=== PATIENT | female | born 1975 | race Caucasian/White ===

== ENCOUNTER 2021-06-26 18:24 | Emergency (ER) | payer OTHER ==
--- OUTSIDE RECORDS SUMMARY | 2021-06-26 18:27 | XMS REPORT | Continuity of Care Document ---
:[address] [facility] t Address [facility]3 [address] [place] [address] Care Team Providers Name Role Phone Unknown Primary Care Physician Unavailable ANTONY Attending Clinician Unavailable JORGE Attending Clinician Unavailable DR LARISA Attending Clinician Unavailable Dada Attending Clinician Unavailable OSORIO Attending Clinician Unavailable Doe Attending Clinician Unavailable Doctor Unassigned, Name Attending Clinician Unavailable Willis Rush Attending Clinician Unavailable Willis Rush Attending Clinician Unavailable RORY [place] M.D. Attending Clinician Unavailable DR LARISA Admitting Clinician Unavailable Dada Admitting Clinician Unavailable OSORIO Admitting Clinician Unavailable Doe Admitting Clinician Unavailable Willis Rush Admitting Clinician Unavailable RORY [place] M.D., C Admitting Clinician Unavailab JANAE Juarez M.D. Admitting Clinician Unavailable Payers Payer Name Policy Type Policy Number Effective Date Expiration Date [facility] [id number] 2020 ST[place] 00:00:00 [facility] [id number] 2017 COMMUNITY PLAN [place] 00:00:00 (MEDICAID HMO) Problems Condition Condition Condition Status Onset Resolution Last Treating Co mments Source Name Details Category Date Date Treatment Clinician Date Osteoarthr Osteoarthr Disease Active [facility] itis itis 8 Health 00:00: 00 Peripheral Peripheral Disease Active [facility] venous venous 12-26 Health insufficie insufficie 00:00: ncy ncy 00 Carotid Carotid Problem Active [place] artery Artery 12-26 da stenosis Stenosis 00:00: [facility] Coronary Coronary Problem Active [place] arterioscl Arterioscl 8 da erosis erosis 00:00: [facility] Hypokalemi Hypokalemi Disease Active [facility] a a 3 Health 00:00: 00 Insomnia Insomnia Disease Active [facility] 3 Health 00:00: 00 Prediabete Prediabete Disease Active U T s s 07-04 Health 00:00: 00 Pulmonary Pulmonary Disease Active [facility] hypertensi hypertensi 309 He alth on on 00:00: 00 Congestive Congestive Problem Active [facility] [place] heart Heart 3 da failure Failure 00:00: [facility] 00 pr [facility]re[facility] Varicose Varicose Problem Active [place] veins of Veins of 3 da lower limb Lower Limb 00:00: Ep iscop co-occurre Co-occurre 00 al nt with nt with Health edema Edema Outreac h Program Coronary Coronary Disease Active [facility] arterioscl arterioscl 6-25 He alth erosis erosis 00:00: 00 Mechanical Mechanical Disease Active U T low back low back 4-02 Health pain pain 00:00: 00 Gastro-eso Gastro-eso Disease Active U T phageal phageal 1 Health reflux reflux 00:00: disease disease 00 with with esophagiti esophagiti s s Foot Foot Disease Active [facility] callus callus 1 Health 00:00: 00 Edema of Edema of Problem Active [place] lower Lower 1 da extremity 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 [facility]re[facility] Program Diverticul Diverticul Disease Active [facility] T ar disease ar disease 1 He alth of colon of colon 00:00: 00 Diverticul Diverticul Problem Active [facility] [place] ar disease ar Disease 1- da of colon of Colon 00:00: [facility] 00 al [facility] Morbid Morbid Problem Active 2017-04 [place] obesity Obesity 1-30 da 00:00: [facility] 00 [facility] Angina Angina Disease Active [facility] pectoris pectoris 711 Health 00:00: 00 Edema of Edema of Disease Active [facility] lower lower 711 Health extremity extremity 00:00: 00 Essential Essential Disease Active [facility] hypertensi hypertensi 711 He alth on on 00:00: 00 Fibromyalg Fibromyalg Disease Active U T ia ia 7 Health 00:00: 00 Hyperlipid Hyperlipid Disease Active U T emia emia 7 Health 00:00: 00 Onychomyco Onychomyco Disease Active U T sis of sis of 11-05 Health toenail toenail 00:00: 00 Irritable Irritable Problem Active [place] bowel Bowel 11-05 da syndrome Syndrome 00:00: [facility] 00 al [facility]re[facility] Carotid Carotid Disease Active [facility] artery artery 3-29 Health stenosis stenosis 00:00: 00 Cigarette Cigarette Disease Active 2016-04 [facility] smoker smoker 2-14 Health 00:00: 00 Congestive Congestive Disease Active 2016-04 U T heart heart 2-14 Health failure failure 00:00: 00 Edema Edema Disease Active 2016-04 UT 2-14 Health 00:00: 00 Morbid Morbid Disease Active 2016-04 [facility] obesity obesity 2-14 Health 00:00: 00 Adrenal Adrenal Disease Active 2016-04 UT hyperplasi hyperplasi 0-18 He alth a a 00:00: 00 Adrenal Adrenal Disease Active 2016-04 [facility] nodule nodule 0-18 Health 00:00: 00 Allergies, Adverse Reactions, Alerts Allergy Allergy Status Severity Reaction(s) Onset Inactive Treating Comm ents Source Name Type Date Date Clinician No Known DA Active [facility] s Social History Social Habit Start Date Stop Date Quantity Comments Source Exposure to Not sure [facility] SARS-CoV-2 (event) Tobacco use and 2021-04-09 2021-04-09 Smokeless tobacco [facility] exposure 00:00:00 00:00:00 non-user Alcohol intake 2021-04-09 2021-04-09 Lifetime [facility] 00:00:00 00:00:00 non-drinker (finding) Education 2021-04-09 2021-04-09 11 [facility] 00:00:00 00:00:00 Sex Ass[birth year] At [birth year] [facility] 00:00:00 00:00:00 Smoking Status Start Date Stop Date Source Never smoked tobacco [facility] Former smoker 2018-11-10 00:00:00 2018-11-10 00:00:00 [facility] Medications Ordered Filled Start Stop Current Ordering Indication Dosage Frequency Signature Comments Components Source Medication Medication Date Date Medication? Clinician (SIG) Name Name lidocaine 2020-04 No 2162 20mg UT (Xylocaine) 06-10 Health 1 % 15:45: 15:45 injection 00 :00 20 mg methylPREDN 2020-04 No 40mg UT ISolone 06-10 Health acetate 15:45: 15:45 (DEPO-Medro 00 :00 l) injection 40 mg lidocaine 2020-04 No 2162 20mg UT (Xylocaine) 06-10 Health 1 % 15:45: 15:45 injection 00 :00 20 mg lidocaine 2020-04 No 2162 2mL 20 mg (2 UT (Xylocaine) 06-10 mL), Health 1 % 15:45: 15:45 Intra-kalpesh injection 00 :00 cular, 20 mg Once, On 04/09/21 at 0945, For 1 dose
In dications: Local Anesthesia methylPREDN 2020-04 No 40mg 40 mg, UT ISolone 06-10 Intra-kalpesh Healt h acetate 15:45: 15:45 cular, (DEPO-Medro 00 :00 Once, On l) Mon injection 04/09/21 40 mg at 0945, For 1 dose
In dications: shoulder pain diclofenac 2020-04- No QD 1 (one) UT (Voltaren) 06-10 time each Hea lth 75 MG EC 09:14: 00:00 day. tablet 28 :00 spironolact 2020-04 Yes Q12H every 12 UT one -13 (twelve) Health (Aldactone) 08:33: hours. 25 MG 35 tablet sulfamethox 2020-04 Yes Q12H every 12 UT azole-trime 2-13 (twelve) Heal th thoprim 08:33: hours. (Bactrim 35 DS) 800-160 MG tablet tazarotene 2020-04 Yes tazarotene U T (Tazorac) 2-13 0.1 % Health 0.1 % cream 08:33: topical 35 cream APPLY EXTERNALLY TO THE AFFECTED AREA EVERY NIGHT AT BEDTIME terbinafine 2020-04 Yes QD 1 (one) UT (LamISIL) 2-13 time each Healt h 250 MG 08:33: day. tablet 35 tiZANidine 2020-04 Yes [id number] 2mg QD Take 1 U T (Zanaflex) 2-13 tablet (2 Heal th 2 MG tablet 00:00: mg total) 00 by mouth at night if needed for muscle spasms. meloxicam 2020-04- Yes [id number] 7.5mg QD Take 1 U T (Mobic) 7.5 2-13 12-14 tablet Healt h MG tablet 00:00: 05:59 (7.5 mg 00 :00 total) by mouth 1 (one) time each day. meloxicam 2020-04 No [id number] 15mg QD Take 1 UT (Mobic) 15 2-13 12-13 tablet (15 He alth MG tablet 00:00: 00:00 mg total) 00 :00 by mouth 1 (one) time each day. clopidogrel 2020-04 Yes 75mg QD Take 75 mg UT (Plavix) 75 1-28 by mouth 1 He alth MG tablet 00:00: (one) time 00 each day. as directed atorvastati 2020-04 Yes 10mg QD Take 10 mg UT n (Lipitor) 1-26 by mouth 1 He alth 10 MG 00:00: (one) time tablet 00 each day. DULoxetine 2020-04 Yes 30mg Take 30 mg U T (Cymbalta) 1-21 by mouth 1 Hea lth [address] 00:00: (one) time capsule 00 each day if needed. hyoscyamine 2020-04 Yes DISSOLVE 2 UT (Anaspaz) 1-21 TABLETS Health 0.125 MG 00:00: UNDER THE disintegrat 00 TONGUE 30 ing tablet MINUTES BEFORE A MEAL lisinopril 2020-04 Yes 5mg QD Take 5 mg UT 5 MG tablet 1-21 by mouth 1 He alth 00:00: (one) time 00 each day. doxepin 2020-04 Yes TAKE ONE UT (SINEquan) 1-01 CAPSULE BY [facility] 50 MG 00:00: MOUTH capsule 00 DAILY 30 MINUTES BEFORE GOING TO SLEEP pantoprazol Yes 40mg Take 40 mg UT e 01-24 by mouth Health (ProtoNix) 00:00: every 40 MG EC 00 night. tablet sertraline Yes 50mg Take 50 mg U T (Zoloft) 50 01-02 by mouth 1 He alth MG tablet 00:00: (one) time 00 each day in the morning. metOLazone Yes 2.5mg Q.5D Take 2.5 UT (Zaroxolyn) 9-02 mg by [facility] 5 MG tablet 00:00: mouth 2 00 (two) times a day. isosorbide Yes TAKE 1 UT mononitrate 9- TABLET BY [facility] ER (Imdur) 00:00: MOUTH 30 MG 24 hr 00 DAILY FOR tablet CHEST PAIN fluconazole Yes TAKE 1 UT (Diflucan) 8-19 TABLET BY [facility] th 150 MG 00:00: MOUTH tablet 00 EVERY WEEK DIRECTED torsemide Yes 20mg Q.[id number] Take 20 mg UT (Demadex) 7- [id number] by mouth 3 Health 20 MG 00:00: 3D (three) tablet 00 times a day. metFORMIN Yes TAKE 1 UT (Glucophage 6-05 TABLET BY [facility] ) 500 MG 00:00: MOUTH tablet 00 EVERY MORNING WITH THE FIRST MEAL OF THE DAY. baclofen Yes 20mg Take 20 mg UT (Lioresal) 5-03 by mouth Healt h 20 MG 00:00: every tablet 00 night. topiramate Yes TK 1 T PO UT (Topamax) 5-03 BID UTD Health 100 MG 00:00: tablet 00 griseofulvi Yes TAKE 1 UT n 3-14 TABLET BY [facility] (Yasmin-PEG) 00:00: MOUTH 250 MG 00 THREE tablet TIMES DAILY DIRECTED Hydrocodone Yes Take by Un marce -Acetaminop 7-15 mouth 2 ity o f hen 7.5-300 15:51: (two) [place] mg tablet 18 times Medical daily. Branch amitriptyli 0 Yes 150mg Take 150 U nivers ne 150 mg 7-15 mg by ity of tablet 15:51: mouth at [place] 18 bedtime. Medical Branch aspirin 81 2019-0 Yes 81mg Take 81 mg U nivers mg EC 7-15 by mouth ity of tablet 15:51: daily. [place] [address] Medical Branch atorvastati 0 Yes 20mg Take 20 mg Univers n 20 mg 7-15 by mouth ity of tablet 15:51: at [place] 18 bedtime. Medical Branch baclofen 10 0 Yes 10mg Take 10 mg Univers mg tablet 7-15 by mouth 2 ity of 15:51: (two) [place] 18 times Medical daily. Branch clopidogrel Yes 75mg Take 75 mg Univers 75 mg 7-15 by mouth ity of tablet 15:51: daily. [place] [address] Medical Branch diclofenac- 2018-0 Yes Univer s capsaicin 7-15 ity of 75 mg- 15:51: [place] 0.025 % Kit Medical Branch esomeprazol 0 Yes 20mg Take 20 mg Univers e (NEXIUM) 7-15 by mouth ity o f 20 mg 15:51: daily [place] capsule 18 before a Medical meal. Branch gabapentin 0 Yes 300mg Take 300 Un marce ER 300 mg 7-15 mg by ity of tablet, 15:51: mouth [place] extended 18 daily. Medical release 24 Branch hr hyoscyamine 2018-0 Yes .125mg Take 0.125 Univers 0.125 mg 7-15 mg by ity of tablet 15:51: mouth 2 [place] 18 (two) Medical times Branch daily. isosorbide 20190 Yes 30mg Take 30 mg U nivers mononitrate 7-15 by mouth 2 it y of 30 mg 24 hr 15:51: (two) [place] tablet 18 times Medical daily. Branch lisinopril 0 Yes 5mg Take 5 mg Un marce 5 mg tablet 7-15 by mouth ity of 15:51: daily. [place] [address] Medical Branch metFORMIN 2019-0 Yes 500mg Take 500 Uni vers 500 mg 7-15 mg by ity of tablet 15:51: mouth. [place] [address] Medical Branch metOLazone 2019-0 Yes 10mg Take 10 mg U nivers 10 mg 7-15 by mouth ity of tablet 15:51: daily. [address] Branch nebivolol Yes 5mg Take 5 mg Uni vers (BYSTOLIC) 7-15 by mouth 2 ity of 5 mg tablet 15:51: (two) [place] 18 times Medical daily. Branch pantoprazol Yes 40mg Take 40 mg Univers e 40 mg EC 7-15 by mouth ity o f tablet 15:51: daily. [address] Branch POTASSIUM Yes Take by Univ ers CHLORIDE 7-15 mouth 2 ity of ORAL 15:51: (two) [place] 18 times Medical daily. Branch topiramate Yes 100mg Take 100 Un marce 100 mg 7-15 mg by ity of tablet 15:51: mouth [place] 18 daily. Medical Branch dexamethaso Yes [id number] Take one Univers ne 1 mg 7-18 [id number] tablet ity of tablet 00:00: between 11 [place] 00 PM- Medical midnight Branch and come to Lab at 8 am next morning acetaminoph Yes Univer s en-codeine 7-10 ity of 300-30 mg 00:00: [place] tablet 00 Medical Branch SERTraline Yes Univers 100 mg 6-27 ity of tablet 00:00: [place] [address] Medical Branch topiramate topiramate No topiramate [place] 100 mg tabs 100 mg tabs 100 mg da tabs Medical Group torsemide torsemide No torsemide [place] 20 mg tabs 20 mg tabs 20 mg tabs da Medical Group tramadol tramadol No tramadol [place] hcl 50 mg hcl 50 mg hcl 50 mg da tabs tabs tabs Medical Group atorvastati atorvastati No atorvastat [place] n 10 mg n 10 mg in 10 mg da tablet TAKE tablet TAKE tablet [facility] 1 TABLET BY 1 TABLET BY TAKE 1 al MOUTH EVERY MOUTH EVERY TABLET BY Health DAY DAY MOUTH Outreac EVERY DAY h Program cholecalcif cholecalcif No cholecalci [place] michell michell ferol da (vitamin (vitamin (vitamin Epi scop D3) 250 mcg D3) 250 mcg D3) 250 al (10,000 (10,000 mcg Health unit) unit) (10,000 Outreac tablet TAKE tablet TAKE unit) h 1 TABLET BY 1 TABLET BY tablet Program MOUTH EVERY MOUTH EVERY TAKE 1 DAY DAY TABLET BY MOUTH EVERY DAY clopidogrel clopidogrel No clopidogre [place] 75 mg 75 mg l 75 mg da tablet TAKE tablet TAKE tablet [facility] 1 TABLET BY 1 TABLET BY TAKE 1 al MOUTH DAILY MOUTH DAILY TABLET BY Health DIRECTED DIRECTED MOUTH Outreac DAILY h DIRECTED Program doxepin 50 doxepin 50 No doxepin 50 [place] mg capsule mg capsule mg capsule da TAKE ONE TAKE ONE TAKE ONE Epi scop CAPSULE BY CAPSULE BY CAPSULE BY al MOUTH DAILY MOUTH DAILY MOUTH Health 30 MINUTES 30 MINUTES DAILY 30 Outreac BEFORE BEFORE MINUTES h GOING TO GOING TO BEFORE Progr am SLEEP SLEEP GOING TO SLEEP duloxetine duloxetine No duloxetine [place] 30 mg 30 mg 30 mg da capsule,del capsule,del capsule,de [facility] ayed ayed layed al release release release Health TAKE ONE TAKE ONE TAKE ONE Out reac CAPSULE BY CAPSULE BY CAPSULE BY h MOUTH DAILY MOUTH DAILY MOUTH Program NEEDED NEEDED DAILY NEEDED fluconazole fluconazole No fluconazol [place] 150 mg 150 mg e 150 mg da tablet TAKE tablet TAKE tablet [facility] 1 TABLET BY 1 TABLET BY TAKE 1 al MOUTH EVERY MOUTH EVERY TABLET BY Health WEEK WEEK MOUTH Outreac DIRECTED DIRECTED EVERY WEEK h Program DIRECTED hyoscyamine hyoscyamine No hyoscyamin [place] 0.125 mg 0.125 mg e 0.125 mg d a disintegrat disintegrat disintegra [facility] ing tablet ing tablet ting al DISSOLVE 2 DISSOLVE 2 tablet H ealth TABLETS TABLETS DISSOLVE 2 Out reac UNDER THE UNDER THE TABLETS h TONGUE 30 TONGUE 30 UNDER THE Program MINUTES MINUTES TONGUE 30 BEFORE A BEFORE A MINUTES MEAL MEAL BEFORE A MEAL isosorbide isosorbide No isosorbide [place] mononitrate mononitrate mononitrat da ER 30 mg ER 30 mg e ER 30 mg E piscop tablet,exte tablet,exte tablet,ext al nded nded ended Health release 24 release 24 release 24 Outreac hr TAKE 1 hr TAKE 1 hr TAKE 1 h TABLET BY TABLET BY TABLET BY Program MOUTH DAILY MOUTH DAILY MOUTH FOR CHEST FOR CHEST DAILY FOR PAIN PAIN CHEST PAIN ketoconazol ketoconazol No ketoconazo [place] e 2 % e 2 % le 2 % da topical topical topical [facility] cream APPLY cream APPLY cream al TOPICALLY TOPICALLY APPLY Heal th TO THE TO THE TOPICALLY Outrea c AFFECTED AFFECTED TO THE h AREA TWICE AREA TWICE AFFECTED Program DAILY DAILY AREA TWICE DAILY lisinopril lisinopril No lisinopril [place] 5 mg tablet 5 mg tablet 5 mg d a TAKE 1 TAKE 1 tablet [facility] TABLET BY TABLET BY TAKE 1 al MOUTH EVERY MOUTH EVERY TABLET BY Health DAY DAY MOUTH Outreac EVERY DAY h Program metolazone metolazone No metolazone [place] 5 mg tablet 5 mg tablet 5 mg d a TAKE 1/2 TAKE 1/2 tablet [facility] TABLET BY TABLET BY TAKE 1/2 a l MOUTH TWICE MOUTH TWICE TABLET BY Health DAILY DAILY MOUTH Outreac Schedule Schedule TWICE h with with DAILY Program cardiologis cardiologis Schedule t for t for with continued continued cardiologi medications medications st for . . continued medication s. MG217 [place] MG217 [place] No MG217 [place] Tar 3 % Tar 3 % Tar 3 % da shampoo shampoo shampoo [facility] Apply Apply Apply al topically topically topically Health to affected to affected to [facility] [place] areas once areas once affected h every week. every week. areas once Program Apply to Apply to every affected affected week. areas once areas once Apply to a week in a week in affected the shower, the shower, areas once leave on leave on a week in affected affected the areas for areas for shower, about 3-5 about 3-5 leave on minutes, minutes, affected and rinse and rinse areas for off. Notify off. Notify about 3-5 office with office with minutes, worsening worsening and rinse or new or new off. rash. rash. Notify office with worsening or new rash. pantoprazol pantoprazol No pantoprazo [place] e 40 mg e 40 mg le 40 mg da tablet,lubna tablet,lubna tablet,del [facility] yed release yed release ayed a l TAKE 1 TAKE 1 release Health TABLET BY TABLET BY TAKE 1 Out reac MOUTH EVERY MOUTH EVERY TABLET BY h NIGHT AT NIGHT AT MOUTH Progra m BEDTIME BEDTIME EVERY NIGHT AT BEDTIME potassium potassium No potassium [place] chloride ER chloride ER chloride da 20 mEq 20 mEq ER 20 mEq [facility] tablet,exte tablet,exte tablet,ext al nded nded ended Health release release release Outrea c TAKE 2 TAKE 2 TAKE 2 h TABLETS BY TABLETS BY TABLETS BY Program MOUTH DAILY MOUTH DAILY MOUTH DAILY sertraline sertraline No sertraline [place] 50 mg 50 mg 50 mg da tablet TAKE tablet TAKE tablet [facility] 1 TABLET BY 1 TABLET BY TAKE 1 al MOUTH EVERY MOUTH EVERY TABLET BY Health MORNING MORNING MOUTH Outreac EVERY h MORNING Program tazarotene tazarotene No tazarotene [place] 0.1 % 0.1 % 0.1 % da topical topical topical [facility] cream APPLY cream APPLY cream al EXTERNALLY EXTERNALLY APPLY He alth TO THE TO THE EXTERNALLY Outre ac AFFECTED AFFECTED TO THE h AREA EVERY AREA EVERY AFFECTED Program NIGHT AT NIGHT AT AREA EVERY BEDTIME BEDTIME NIGHT AT BEDTIME torsemide torsemide No torsemide [place] 20 mg 20 mg 20 mg da tablet TAKE tablet TAKE tablet [facility] 1 TABLET BY 1 TABLET BY TAKE 1 al MOUTH THREE MOUTH THREE TABLET BY Health TIMES DAILY TIMES DAILY MOUTH Outreac THREE h TIMES Program DAILY triamcinolo triamcinolo No triamcinol [place] ne ne one da acetonide acetonide acetonide [facility] 0.1 % 0.1 % 0.1 % al topical topical topical Health ointment ointment ointment Out reac APPLY THIN APPLY THIN APPLY THIN h LAYER LAYER LAYER Program TOPICALLY TOPICALLY TOPICALLY TO THE TO THE TO THE AFFECTED AFFECTED AFFECTED AREA TWICE AREA TWICE AREA TWICE DAILY DAILY DAILY ala-hist pe ala-hist pe No ala-hist [place] tab 2-10mg tab 2-10mg pe tab da 2-10mg Medical Group amitriptyli amitriptyli No amitriptyl [place] ne hcl 150 ne hcl 150 ine hcl da mg tabs mg tabs 150 mg Medical tabs Group amitriptyli amitriptyli No amitriptyl [place] ne ne ine da hydrochlori hydrochlori hydrochlor Medical de 150 mg de 150 mg charley 150 Group tabs tabs mg tabs atorvastati atorvastati No atorvastat [place] n calcium n calcium in calcium da 20 mg tabs 20 mg tabs 20 mg M edical tabs Group baclofen baclofen No baclofen [place] 20 mg tabs 20 mg tabs 20 mg tabs da Medical Group bystolic 5 bystolic 5 No bystolic [place] mg tabs mg tabs 5 mg tabs da Medical Group clopidogrel clopidogrel No clopidogre [place] 75 mg tabs 75 mg tabs l 75 mg da tabs Medical Group diclofenac diclofenac No diclofenac [place] sodium dr jeremiah daniels dr da 75 mg tbec 75 mg tbec 75 mg tbec Medical Group doxepin hcl doxepin hcl No doxepin [place] 50 mg caps 50 mg caps hcl 50 mg da caps Medical Group gabapentin gabapentin No gabapentin [place] 300 mg caps 300 mg caps 300 mg da caps Medical Group hydroco/apa hydroco/apa No hydroco/ap [place] p tab p tab ap tab da 7.5-325 7.5-325 7.5-325 Medica l Group hyoscyamine hyoscyamine No hyoscyamin [place] sulfate sulfate e sulfate da 0.125 mg 0.125 mg 0.125 mg Med ical tbdp tbdp tbdp Group isosorbide isosorbide No isosorbide [place] mononitrate mononitrate mononitrat da er 30 mg er 30 mg e er 30 M edical tb24 tb24 mg tb24 Group lisinopril lisinopril No lisinopril [place] 5 mg tabs 5 mg tabs 5 mg tabs da Medical Group Medrol Medrol No 1dose Medrol [place] (Jim) 4 mg (Jim) 4 mg pk(s) (Jim) 4 mg da tablets in tablets in tablets in Medical a dose pack a dose pack a dose Group Take 1 dose Take 1 dose pack Take pk by oral pk by oral 1 dose pk route. route. by oral route. metformin metformin No metformin [place] hydrochlori hydrochlori hydrochlor da de 500 mg de 500 mg charley 500 Medical tabs tabs mg tabs Group metolazone metolazone No metolazone [place] 5 mg tabs 5 mg tabs 5 mg tabs da Medical Group off deep off deep No off deep [place] tejada dry tejada dry tejada dry da 25 % aero 25 % aero 25 % aero Medical Group pantoprazol pantoprazol No pantoprazo [place] e sodium e sodium le sodium da 40 mg tbec 40 mg tbec 40 mg tbec Medical [facility] potassium potassium No potassium [place] chloride chloride chloride da 10 % soln 10 % soln 10 % soln Medical Group potassium potassium No potassium [place] chloride er chloride er chloride da 20 meq 20 meq er 20 meq Med ical tbcr tbcr tbcr Group prednisone prednisone No prednisone [place] 20 mg tabs 20 mg tabs 20 mg d a tabs Medical Group sertraline sertraline No sertraline [place] hcl 50 mg hcl 50 mg hcl 50 mg da tabs tabs tabs Medical Group Immunizations Ordered Immunization Filled Immunization Date Status Commen ts Source Name Name pneumococcal pneumococcal 2020-12-26 Completed [place] polysaccharide PPV23 polysaccharide PPV23 17:39:54 [facility] Tdap Tdap 2020-12-26 Completed [place] 17:34:02 [facility] Tdap 2020-12-26 Completed [facility] 00:00:00 Pneumococcal 2020-12-26 Completed [facility] Polysaccharide PPV23 00:00:00 Influenza, 2018-03-24 Completed [facility] injectable, 00:00:00 quadrivalent influenza, influenza, 2018-03-24 Completed [place] injectable, injectable, 00:00:00 [facility] Vital Signs Vital Name Observation Time Observation Value Comments Source Systolic blood 2021-04-09 14:26:00 96 mm[Hg] [facility] pressure Diastolic blood 2021-04-09 14:26:00 63 mm[Hg] [facility] alth pressure Heart rate 2021-04-09 14:25:00 78 /min [facility] Body temperature 2021-04-09 14:25:[address] [facility] ealt Respiratory rate 2021-04-09 14:25:00 19 /min [facility] ealth Body height 2021-04-09 14:25:[address] [facility] Body weight 2021-04-09 14:25:00 113.671 kg [facility] BMI 2021-04-09 14:25:00 44.39 kg/m2 [facility] Oxygen saturation in 2021-04-09 14:25:00 100 /min [facility] Arterial blood by Pulse oximetry BP Diastolic 2021-01-04 00:00:00 86 mm[Hg] [place] [facility] Height 2021-01-04 00:00:00 63 [in_i] [place] [facility] BMI (Body Mass 2021-01-04 00:00:00 45.5 kg/m2 [place] driller Index) [facility] BP Systolic 2021-01-04 00:00:00 139 mm[Hg] [place] [facility] Body Weight 2021-01-04 00:00:00 256.6 [lb_av] [place] [facility] BP Diastolic 2020-12-26 00:00:00 80 mm[Hg] [place] [facility] Height 2020-12-26 00:00:00 63 [in_i] [place] [facility] BMI (Body Mass 2020-12-26 00:00:00 46.1 kg/m2 [place] driller Index) [facility] BP Systolic 2020-12-26 00:00:00 124 mm[Hg] [place] [facility] Body Weight 2020-12-26 00:00:00 4160 [oz_av] [place] [facility] BP Diastolic 2020-10-02 00:00:00 80 mm[Hg] [place] [facility] Height 2020-10-02 00:00:00 63 [in_i] [place] [facility] BMI (Body Mass 2020-10-02 00:00:00 44.3 kg/m2 [place] driller Index) [facility] BP Systolic 2020-10-02 00:00:00 116 mm[Hg] [place] [facility] Body Weight 2020-10-02 00:00:00 4000 [oz_av] [place] [facility] BP Diastolic 2020-07-03 00:00:00 72 mm[Hg] [place] [facility] Height 2020-07-03 00:00:00 63 [in_i] [place] [facility] BMI (Body Mass 2020-07-03 00:00:00 44.9 kg/m2 [place] [facility] dr[facility] Index) [facility] BP Systolic 2020-07-03 00:00:00 111 mm[Hg] [place] [facility] Body Weight 2020-07-03 00:00:00 4054.4 [oz_av] [place] [facility] BP Diastolic 2020-03-03 00:00:00 64 mm[Hg] [place] [facility] Height 2020-03-03 00:00:00 63 [in_i] [place] [facility] BMI (Body Mass 2020-03-03 00:00:00 42.9 kg/m2 [place] [facility] Index) [facility] BP Systolic 2020-03-03 00:00:00 117 mm[Hg] [place] [facility] Body Weight 2020-03-03 00:00:00 3875.2 [oz_av] [place] [facility] Height 2019-10-22 09:25:00 160.02 CM Weight 2019-10-22 09:25:00 112.49 KG BP Diastolic 2019-09-29 00:00:00 70 mm[Hg] [place] [facility] Height 2019-09-29 00:00:00 63 [in_i] [place] [facility] BMI (Body Mass 2019-09-29 00:00:00 46 kg/m2 [place] [facility] Index) [facility] BP Systolic 2019-09-29 00:00:00 120 mm[Hg] [place] [facility] Body Weight 2019-09-29 00:00:00 4153.6 [oz_av] [place] [facility] BP Diastolic 2019-09-28 00:00:00 77 mm[Hg] [place] [facility] Height 2019-09-28 00:00:00 63 [in_i] [facility] BMI (Body Mass 2019-09-28 00:00:00 45 kg/m2 [place] [facility] Index) Group BP Systolic 2019-09-28 00:00:00 105 mm[Hg] [facility] Body Weight 2019-09-28 00:00:00 254 [lb_av] [facility] BP Diastolic 2019-09-15 00:00:00 78 mm[Hg] [place] [facility] Height 2019-09-15 00:00:00 63 [in_i] [place] [facility] BMI (Body Mass 2019-09-15 00:00:00 45.4 kg/m2 [place] [facility] Index) [facility] BP Systolic 2019-09-15 00:00:00 108 mm[Hg] [place] [facility] Body Weight 2019-09-15 00:00:00 256.4 [lb_av] [place] [facility] BP Diastolic 2019-08-27 00:00:00 66 mm[Hg] [place] [facility] Height 2019-08-27 00:00:00 63 [in_i] [place] [facility] BMI (Body Mass 2019-08-27 00:00:00 46.3 kg/m2 [place] [facility] Index) [facility] BP Systolic 2019-08-27 00:00:00 112 mm[Hg] [place] [facility] Body Weight 2019-08-27 00:00:00 261.6 [lb_av] [place] [facility] BP Diastolic 2019-02-23 00:00:00 60 mm[Hg] [place] [facility] Height 2019-02-23 00:00:00 63 [in_i] [place] [facility] BMI (Body Mass 2019-02-23 00:00:00 47.2 kg/m2 [place] [facility] Index) [facility] BP Systolic 2019-02-23 00:00:00 120 mm[Hg] [place] [facility] Body Weight 2019-02-23 00:00:00 266.2 [lb_av] [place] [facility] Procedures Procedure Date / Time Performing Clinician Source Performed EXCISION RT KNEE JOINT 2019-11-22 00:00:00 [facility] END[facility] Center REPR RT KNEE JOINT PERQ 2019-11-22 00:00:00 [facility] ENDOSCOPIC Center MEDICATION CORRESPONDENCE 2019-09-28 05:01:00 Doctor Unassigned, [facility] [place] [facility] XR, knee, 3 view 2019-08-27 00:00:00 [place] [facility] XR, tibia + fibula, 2 2019-08-27 00:00:00 [place] [facility] MRI, knee, w/o contrast 2019-08-27 00:00:00 Alejo duval [facility] Insertion Catheter Artery [place] [facility] Orthopedic Surgery [place] [facility] Partial Hysterectomy [place] [facility] Plan of Care Planned Activity Planned Date Details Comments Source Diagnostic Test 2021-01-04 adenovirus C(40) + B(41) [place] Pending 00:00:00 Ag, qual immunoassay, [facility] stool [code = adenovirus Out reach Program C(40) + B(41) Ag, qual immunoassay, stool] Diagnostic Test 2021-01-04 C diff toxin A+B, qual [place] Pending 00:00:00 IA, stool [code = C diff [facility] toxin A+B, qual [place], Outreach Program stool] Diagnostic Test 2021-01-04 calprotectin, stool [place] Pending 00:00:00 [code = calprotectin, [facility] stool] [facility]reach [facility] Diagnostic Test 2021-01-04 cryptosporidium sp Ag, [place] Pending 00:00:00 immunoassay, stool [code [facility] = cryptosporidium sp Ag, Out reach Program immunoassay, stool] Diagnostic Test 2021-01-04 cyclospora smear, stool [place] sy[place] Pending 00:00:00 [code = cyclospora [facility] smear, stool] Outreach Progr am Diagnostic Test 2021-01-04 shiga toxins (1+2), [place] Pending 00:00:00 qualitative[facility] immuno[facility], stool [code Out reach Program = shiga toxins (1+2), qualitative, immunoassay, stool] Diagnostic Test 2021-01-04 pancreatic elastase, [place] sim[place] Pending 00:00:00 quant, stool [code = [facility] pancreatic elastase, Outreac h Program quant, stool] Diagnostic Test 2021-01-04 giardia lamblia Ag, EIA, [place] Pending 00:00:00 stool [code = giardia [facility] lamblia Ag, EIA, stool] Outr each Program Diagnostic Test 2021-01-04 unlisted lab [code = [place] simin Pending 00:00:00 unlisted lab] [facility] Diagnostic Test 2021-01-04 O&P (ova & parasites), [place] Pending 00:00:00 stool [code = O&P (ova & Epi [facility] parasites), stool] Outreach Program Diagnostic Test 2021-01-04 rotavirus Ag, qual, [place] Pending 00:00:00 immunoassay, stool [code [facility] = rotavirus Ag, qual, Outrea Program immunoassay, stool] Diagnostic Test 2021-01-04 culture, stool [code = [place] Pending 00:00:00 culture, stool] [facility] Outreach Progra m Diagnostic Test 2021-01-04 anca panel, serum [code [place] Pending 00:00:00 = anca panel, serum] [facility] Outreach Progra m Diagnostic Test 2021-01-04 Vance's yeast Ab, [place] Pending 00:00:00 quantitative, serum [facility] [code = Vance's yeast Outrea Program Ab, quantitative, serum] Diagnostic Test 2021-01-04 C reactive protein, QN, [place] sy[place] Pending 00:00:00 serum or plasma [code = [facility] C reactive protein, QN, Outr each Program serum or plasma] Diagnostic Test 2021-01-04 ESR (erythrocyte [place] Pending 00:00:00 sedimentation rate), [facility] blood [code = ESR Outreach P rogram (erythrocyte sedimentation rate), blood] Diagnostic Test 2021-01-04 celiac disease [place] Pending 00:00:00 comprehensive panel, [facility] serum [code = celiac Outreac h Program disease comprehensive panel, serum] Encounters Start End Encounter Admission Attending Care Care Encounter Source Date/Time Date/Time Type Type Clinicians Facility Department ID 2021-05-23 Outpatient [facility] [id number] [place] 14:27:49 [facility] 2021-04-09 [facility] [id number] [place] 09:38:14 [facility] 2021-03-09 [facility] [id number] [place] 15:37:18 [facility] 2019-12-[address] [facility] [id number] [place] 14:07:00 , HARVEYKIMBERLEY [facility] 2021-06-19 2021-06-19 Outpatient Nguyen_Tho [place] [id number] [place] 02:16:00 02:16:00 0222 da [facility] 2021-06-18 2021-06-18 Outpatient Nguyen_Tho [facility] [id number] [place] 10:58:00 10:58:00 0221 da [facility] 2021-04-09 2021-04-09 Office Jorge [facility] [id number] [place] 08:00:00 09:37:03 Visit Luna HA [id number] [facility] [id number] 2021-01-05 2021-01-05 Outpatient Nguyen_Tho [facility] [id number] [place] 03:06:00 03:06:00 0910 da [facility] Outre[facility] 2021-01-04 2021-01-04 Outpatient Nguyen_Tho [facility] [id number] [place] 04:18:00 04:18:00 0909 da [facility] Outre[facility] 2021-01-04 2021-01-04 Je Georges [facility] [place] - [id number] [place] 00:00:00 00:00:00 Fay Castro MD: [id number] [facility] [place] [place] [address] [facility] [address], [facility] Program [phone] , Ph. 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 2020-06-22 2020-06-22 Outpatient NEESE_RANDELL [facility] [id number] [place] 10:38:00 10:38:00 0225 da [facility] 2020-06-22 2020-06-22 Outpatient NEESE_RANDELL [facility] [id number] [place] 10:38:00 10:38:00 0305 da [facility] 2020-03-03 2020-03-03 Outpatient NEESE_RANDELL [facility] [id number] [place] 05:13:00 05:13:00 1106 da [facility] 2020-03-03 2020-03-03 Randell Boyd [facility] - [id number] [place] 00:00:00 00:00:00 KATHARINE Robert: Fay ji a [address] [facility] [place] [address] Outre [phone] h , Ph. Program 2020-03-01 2020-03-01 Outpatient NEESE_RANDELL [facility] [id number] [place] 02:30:00 02:30:00 1104 da [facility] 2019-11-22 2019-11-[address] [facility] [id number] [place] 06:17:00 11:30[facility]00 [facility] 2019-10-[address] [facility] [id number] [place] 09:21:00 23:59:00 , HARVEY [facility] 2019-09-29 2019-09-29 Outpatient FAUSTO_RANDELL [place] [id number] [place] 11:19:00 11:19:00 0603 da [facility] Outre[facility] Program 2019-09-29 2019-09-29 [facility] [id number] [place] 01:00:00 01:00:00 0603 da [facility] 2019-09-29 2019-09-29 Outpatient Doe [facility] [id number] [place] 01:00:00 01:00:00 0604 Medical Group 2019-09-29 2019-09-29 Randell VASQUEZ [place] - [id number] [place] 00:00:00 00:00:00 KATHARINE Robert: Fay hilton [address] [facility] - [facility] [address], [place], [place] 3 [facility] [address] h , Ph. Program 2019-09-28 2019-09-28 Outpatient Doe [facility] [id number] [place] 12:05:00 12:05:00 0602 Medical Group 2019-09-28 2019-09-28 Orders Doctor RANDELL [id number] 00:00:00 00:00:00 Only Unassigned, [place] [id number] [place] [facility] [id number] 2019-09-28 2019-09-28 Orders Doctor RANDELL [id number] [facility] 00:00:00 00:00:00 Only Unassigned, [place] [id number] [facility] [place] [facility] [id number] Derrell as [id number] [place] [address] Branch 2019-09-28 2019-09-28 [place] [facility] [place] - [id number] M atagor 00:00:00 00:00:00 Discovery bibiana Dotson MD: [address] [place] [address] Group [place] - [address], [place] [address] , Ph. 2019-09-15 2019-09-15 Outpatient NEESE_RANDELL VASQUE[place] [id number] [place] 03:45:00 03:45:00 0520 da [facility] 2019-09-15 2019-09-15 Outpatient Doe [facility] [id number] [place] 03:30:00 03:30:00 0520 da Medical Group 2019-09-15 2019-09-15 Outpatient Doe DAY [facility] [id number] [place] 03:30:00 03:30:00 0528 da Medical Group 2019-09-15 2019-09-15 Randell VASQUEZ [place] - [id number] [place] 00:00:00 00:00:00 KATHARINE Robert: Fay hilton [address] [facility] [place] [facility] [place] 3 Outreac [phone] h , Ph. Program 2019-09-09 2019-09-09 Outpatient NEESE_RANDELL VASQUEZ [id number] [place] 11:03:00 11:03:00 0514 da [facility] 2019-08-27 2019-08-27 Outpatient NEESE_RANDELL VASQUEZ [id number] [place] 03:14:00 03:14:00 0501 da [facility] 2019-08-27 2019-08-27 Randell VASQUEZ [place] - [id number] [place] 00:00:00 00:00:00 KATHARINE Robert: Fay hilton 1700 [facility] [place] [facility] [place] 3 Outreac [phone] h , Ph. Program 2019-08-19 2019-08-19 Outpatient NEESE_RANDELL VASQUEZ [id number] [place] 12:33:00 12:33:00 0423 da [facility] 2019-03-18 2019-03-18 Outpatient NEESE_RANDELL [place] [id number] [place] 08:59:00 08:59:00 0417 da [facility] 2019-02-23 2019-02-23 Randell VASQUEZ [place] - [id number] [place] 00:00:00 00:00:00 KATHARINE Robert: Fay hilton 1700 [facility], [facility] 3, [address] [address] Progr am , Ph. 2018-09-02 2018-09-02 [facility] [id number] 19:50:00 23:59:00 [facility] 2017-04-10 2017-04-10 Outpatient C [facility] [id number] 20:15:00 20:15:00 [facility] Results Test Description Test Time Test Comments Results Result Comments Source CBC W Auto Differential panel - Blood 2020-12-27 00:00:00 Test Item Value Reference Range Interpretation Comme nts Leukocytes [#/volume] in Blood by Automated count (test 6.6 x10e3/u L 3.4-10.8 code = 6690-2) Erythrocytes [#/volume] in Blood by Automated count 4.48 x10e6/uL 3 .77-5.28 (test code = 789-8) Hemoglobin [Mass/volume] in Blood (test code = 718-7) 13.3 g/dL 11.1-15.9 Hematocrit [Volume Fraction] of Blood by Automated count 40.9 % 34.0-46.6 (test code = 4544-3) MCV [Entitic volume] by Automated count (test code = 91 fL 7 9-97 787-2) MCH [Entitic mass] by Automated count (test code = 29.7 pg 26. 6-33.0 785-6) MCHC [Mass/volume] by Automated count (test code = 32.5 g/dL 31. 5-35.7 786-4) Erythrocyte distribution width [Ratio] by Automated 14.4 % 11 .7-15.4 count (test code = 788-0) Platelets [#/volume] in Blood by Automated count (test 384 x10e3/uL 150-450 code = 777-3) Neutrophils/100 leukocytes in Blood by Automated count 57 % not estab. (test code = 770-8) Lymphocytes/100 leukocytes in Blood by Automated count 31 % not estab. (test code = 736-9) Monocytes/100 leukocytes in Blood by Automated count 7 % n ot estab. (test code = 5905-5) Eosinophils/100 leukocytes in Blood by Automated count 4 % not estab. (test code = 713-8) Basophils/100 leukocytes in Blood by Automated count 1 % n ot estab. 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 by Automated count (test code = 77636-5) Morphology [Interpretation] in Blood Narrative (test route sales driver code = 91759-0) [facility] ProgramComprehensive [facility] 2000 panel - Serum or [id number] 00:00:00 Test Item Value Reference Range Interpretation Comments Glucose [Mass/volume] in 91 mg/dL 65-99 Serum or Plasma (test code = 2345-7) Urea nitrogen [Mass/volume] 10 mg/dL 6-24 in Serum or Plasma (test code = 3094-0) Creatinine [Mass/volume] in 0.80 mg/dL 0.57-1.00 Serum or Plasma (test code = 2160-0) Glomerular filtration 89 mL/min/1.73 >59 rate/1.73 sq M.predicted among non-blacks [Volume Rate/Area] in Serum, Plasma or Blood by Creatinine-based formula (CKD-EPI) (test code = 51036-0) Glomerular filtration 103 mL/min/1.73 >59 rate/1.73 sq M.predicted among blacks [Volume Rate/Area] in Serum, Plasma or Blood by Creatinine-based formula (CKD-EPI) (test code = 79109-7) Urea nitrogen/Creatinine 13 9-23 [Mass Ratio] in Serum or Plasma (test code = 3097-3) Sodium [Moles/volume] in 141 mmol/L 134-144 Serum or Plasma (test code = 2951-2) Potassium [Moles/volume] in 4.6 mmol/L 3.5-5.2 Serum or Plasma (test code = 2823-3) Chloride [Moles/volume] in 106 mmol/L 96-106 Serum or Plasma (test code = 5-0) Carbon dioxide, total 23 mmol/L 20-29 [Moles/volume] in Serum or Plasma (test code = 2027-9) Calcium [Mass/volume] in 9.3 mg/dL 8.7-10.2 Serum or Plasma (test code = 30311-0) Protein [Mass/volume] in 6.7 g/dL 6.0-8.5 Serum or Plasma (test code = 2885-2) Albumin [Mass/volume] in 4.1 g/dL 3.8-4.8 Serum or Plasma (test code = 1751-7) Globulin [Mass/volume] in 2.6 g/dL 1.5-4.5 Serum by calculation (test code = 47356-1) Albumin/Globulin [Mass Ratio] 1.6 1.2-2.2 in Serum or Plasma (test code = 1759-0) Bilirubin.total [Mass/volume] 0.3 mg/dL 0.0-1.2 in Serum or Plasma (test code = 1974-2) Alkaline phosphatase 77 IU/L 48-121 [Enzymatic activity/volume] in Serum or Plasma (test code = 6768-6) Aspartate aminotransferase 12 IU/L 0-40 [Enzymatic activity/volume] in Serum or Plasma (test code = 1920-8) Alanine aminotransferase 14 IU/L 0-32 [Enzymatic activity/volume] in Serum or Plasma (test code = 1742-6) [facility]25-Hydroxyvitamin D3+25- Hydroxyvitamin D2 [Mass/volume] in Serum or [id number] 00:00:00 Test Item Value Reference Range Interpretation Comments 25-Hydroxyvitamin 23.8 NG/mL 30.0-100.0 L D3+25-Hydroxyvitamin D2 [Mass/volume] in Serum or Plasma (test code = 31067-2) [facility]+HIV1 p24 Ag [Presence] in Serum or Plasma by [id number] 00:00:00 Test Item Value Reference Range Interpretation Comments HIV 1+2 Ab+HIV1 p24 Ag non reactive non reactive [Presence] in Serum or Plasma by Immunoassay (test code = 25356-8) [facility] *WW*2019-11-22 07:20:00 Test Item Value Reference Range Interpretation Comments GLUCOSE (test code = 105 mg/dL 75-100 H 06D) SODIUM (test code = 139 mmol/L 136-145 01A) POTASSIUM (test code = 3.3 mmol/L 3.6-5.1 L 01B) CHLORIDE (test code = 106 mmol/L 98-107 04A) CO2 (test code = 02A) 29 mmol/L 22-32 ANION GAP (test code = 7.3 mmol/L ANG) BUN (test code = 05D) 8 mg/dL 7-18 CREATININE (test code 0.7 mg/dL 0.4-1.1 = 03E) GFR (test code = GFR) 97 mL/min/1.73m\S\2 >=90 GFR 113 mL/min/1.73m\S\2 >=90 (test code = GFRAA) EGFR (test code = eGFR BY CKD-EPI EGFR) CALCULATION IS NOT RECOMMENDED FOR PATIENTS UNDER 18 YEARS OF AGE. BUN/CREA (test code = 11 12-20 L BCR) CALCIUM (test code = 7.8 mg/dL 8.3-9.5 L 09D) Magnesium, [id number] 04:59:00 Test Item Value Reference Range Interpretation Comments Magnesium (test code = MG) 2.0 mg/dL 1.7-2.5 N Basic Metabolic [id number] 04:59:00 Test Item Value Reference Range Interpretation Comments Sodium (test code = 136 mmol/L 135-145 N NA) Potassium (test 3.8 mmol/L 3.5-5.1 N code = K) Chloride (test code 102 mmol/L 98-105 N = CL) Carbon Dioxide 27 mmol/L 22-29 N (test code = CO2) Glucose (test code 107 mg/dL 70-115 N = GLU) Blood Urea Nitrogen 7 mg/dL 6-20 N (test code = BUN) Creatinine (test 0.6 mg/dL 0.5-0.9 N code = CREAT) Calcium (test code 8.6 mg/dL 8.3-10.5 N = CA) BUN/Creatinine 11.7 Ratio (test code = BCRATIO) Anion Gap (test 7 mmol/L 7-16 N code = AGAP) Estimated GFR (test >60 eGFR (es timated code = GFR) mL/min/1.73m2 Glomerular Joni tration Rate) is an est imated value,calculate d from the patient's s cristin creatinine usin g the MDRD equation.I t is NOT the patient 's actual GFR. The eGFR provides a more clinicallyusefu l measure of kidn ey disease than se rum creatinine alone.This calculation antonio es sex and race into account, if the informationis provided. If th e race is not provided , and the patient isAfrican-Ameri can, multiply by 1.2 12. If sex is not prov ided, and thepatient is female, multipl y by 0.742. Results for patients <18 ye ars ofage have not been validated by th e MDRD study and trungul margy be interpretedwith caution.eGFR Re sult Interpretation: eGFR > or = 60 is in t he Normal RangeeGF R < 60 may mean kidney diseaseeGFR < 1 5 may mean kidney failureRange s recommended by the National Kidney Foundation,http ://nkd ep.nih.gov CBC with [id number] 04:35:00 Test Item Value Reference Range Interpretation Comments WBC (test code = WBC) 7.6 K/cumm 4.4-10.5 N RBC (test code = RBC) 4.37 M/cumm 3.75-5.20 N Hemoglobin (test code = HGB) 13.4 gm/dL 12.2-14.8 N Hematocrit (test code = HCT) 40.8 % 36.5-44.4 N MCV (test code = MCV) 93.3 fL 80-100 N MCH (test code = MCH) 30.6 pg 27.0-32.5 N MCHC (test code = MCHC) 32.8 g/dL 32.0-37.5 N RDW (test code = RDW) 12.3 % 11.5-14.5 N Platelet Count (test code = 307 K/cumm 140-440 N PLTCT) MPV (test code = MPV) 9.5 fL Diff Method (test code = DIFFM) Auto Neutrophil (test code = NEUT) 63.6 % 36-70 N Lymphocyte (test code = LYMPH) 27.3 % 12-44 N Monocyte (test code = MONO) 6.5 % 0-11 N Eosinophil (test code = EOS) 2.2 % 0-7 N Basophil (test code = BASO) 0.3 % 0-2 N Neutro Abs (test code = ANEUT) 4.8 K/cumm 1.6-7.4 N Lymph Abs (test code = ALYMPH) 2.1 K/cumm 0.5-4.6 N Hood Abs (test code = AMONO) 0.5 K/cumm 0.0-1.2 N Eos Abs (test code = AEOS) 0.17 K/cumm 0.00-0.74 N Baso Abs (test code = ABASO) 0.0 K/cumm 0.00-0.21 N Basic Metabolic [id number] 14:00:00 Test Item Value Reference Range Interpretation Comments Sodium (test code = 136 mmol/L 135-145 N NA) Potassium (test 4.1 mmol/L 3.5-5.1 N code = K) Chloride (test code 99 mmol/L 98-105 N = CL) Carbon Dioxide 27 mmol/L 22-29 N (test code = CO2) Glucose (test code 86 mg/dL 70-115 N = GLU) Blood Urea Nitrogen 8 mg/dL 6-20 N (test code = BUN) Creatinine (test 0.7 mg/dL 0.5-0.9 N code = CREAT) Calcium (test code 9.2 mg/dL 8.3-10.5 N = CA) BUN/Creatinine 11.4 Ratio (test code = BCRATIO) Anion Gap (test 10 mmol/L 7-16 N code = AGAP) Estimated GFR (test >60 eGFR (es timated code = GFR) mL/min/1.73m2 Glomerular Joni tration Rate) is an est imated value,calculate d from the patient's s cristin creatinine usin g the MDRD equation.I t is NOT the patient 's actual GFR. The eGFR provides a more clinicallyusefu l measure of kidn ey disease than se rum creatinine alone.This calculation antonio es sex and race into account, if the informationis provided. If th e race is not provided , and the patient isAfrican-Ameri can, multiply by 1.2 12. If sex is not prov ided, and thepatient is female, multipl y by 0.742. Results for patients <18 ye ars ofage have not been validated by th e MDRD study and trungul d be interpretedwith caution.eGFR Re sult Interpretation: eGFR > or = 60 is in t he Normal RangeeGF R < 60 may mean kidney diseaseeGFR < 1 5 may mean kidney failureRange s recommended by the National Kidney Foundation,http ://nkd ep.nih.gov Urinalysis [id number] 13:50:00 Test Item Value Reference Range Interpretation Comments Color (test code = COLOR) Yellow Yellow,Straw,Pl N yellow Clarity (test code = Clear Clear N CLAR) Specific [place] (test 1.006 1.001-1.035 N code = SPGR) pH (test code = PH) 6.5 5.0-9.0 N Ketone (test code = KET) Negative mg/dL Negative N Glucose (test code = Negative mg/dL Negative N GLUCUR) Protein (test code = Negative mg/dL Negative N PROT) Bilirubin (test code = Negative mg/dL Negative N BILI) Occult Blood (test code = Negative Negative N UDOB) Urobilinogen (test code = 0.2 mg/dL 0.2-1.0 N UROB) Nitrite (test code = NIT) Negative Negative N Leuk Esterase (test code Negative Negative N = LEUK) Micros Exam (test code = Not indicated MEXAM) CBC with [id number] 13:33:00 Test Item Value Reference Range Interpretation Comments WBC (test code = WBC) 6.5 K/cumm 4.4-10.5 N RBC (test code = RBC) 4.24 M/cumm 3.75-5.20 N Hemoglobin (test code = HGB) 13.2 gm/dL 12.2-14.8 N Hematocrit (test code = HCT) 39.2 % 36.5-44.4 N MCV (test code = MCV) 92.6 fL 80-100 N MCH (test code = MCH) 31.1 pg 27.0-32.5 N MCHC (test code = MCHC) 33.6 g/dL 32.0-37.5 N RDW (test code = RDW) 12.0 % 11.5-14.5 N Platelet Count (test code = 309 K/cumm 140-440 N PLTCT) MPV (test code = MPV) 7.6 fL Diff Method (test code = DIFFM) Auto Neutrophil (test code = NEUT) 49.7 % 36-70 N Lymphocyte (test code = LYMPH) 37.1 % 12-44 N Monocyte (test code = MONO) 8.2 % 0-11 N Eosinophil (test code = EOS) 4.6 % 0-7 N Basophil (test code = BASO) 0.4 % 0-2 N Neutro Abs (test code = ANEUT) 3.2 K/cumm 1.6-7.4 N Lymph Abs (test code = ALYMPH) 2.4 K/cumm 0.5-4.6 N Hood Abs (test code = AMONO) 0.5 K/cumm 0.0-1.2 N Eos Abs (test code = AEOS) 0.30 K/cumm 0.00-0.74 N Baso Abs (test code = ABASO) 0.0 K/cumm 0.00-0.21 N XR CHEST 1 [id number] 07:51:58EXAM: Portable AP chest x-rayLOCATION: R16 INDICATION: pre-procedure xrayCOMPARISON: NoneFINDINGS:The cardiac silhouette is enlarged. There is no focal consolidation. There is no pleural effusion or pn eumothorax. IMPRESSION:Cardiomegaly.Sed Rate ESR ([place])2017-04-11 03:06:00 Test Item Value Reference Range Interpretation Comments ESR (test code = HESR) 26 mm/Hr 0-20 H Lipid [id number] 22:56:00 Test Item Value Reference Range Interpretation Comments Cholesterol (test 198 mg/dL 0-200 N code = CHOL) Triglycerides (test 129 mg/dL 9-200 N code = TRIG) HDL (test code = 41 mg/dL 50-60 L HDL) Chol/HDL (test code 4.8 Ratio 0.0-4.4 H = CHOLPHDL) LDL, Calculated 131 mg/dL 0-130 H (NOTE)RISK O F HEART (test code = LDLC) DISEASEPu blished by [place] Heart AssociationAnal yte Optim al Boderline Increased RiskC HOL <200 200-239 >240TRI G <150 150-199 >200HDL Male: >60 <40HDL Female: >60 <50 LDL < 100 130-15 9 >160 LDL NEAR OPTIMAL IS 100- 129 VLDL (test code = 26 mg/dL 5-40 N VLDL) LDL/HDL (test code = 3 LDLPHDL) Comprehensive Metabolic [id number] 22:56:00 Test Item Value Reference Range Interpretation Comments Sodium (test code = 140 mmol/L 135-145 N NA) Potassium (test 4.1 mmol/L 3.5-5.1 N code = K) Chloride (test code 103 mmol/L 98-105 N = CL) Carbon Dioxide 26 mmol/L 22-29 N (test code = CO2) Glucose (test code 95 mg/dL 70-115 N = GLU) Blood Urea Nitrogen 7 mg/dL 6-20 N (test code = BUN) Creatinine (test 0.7 mg/dL 0.5-0.9 N code = CREAT) Calcium (test code 9.4 mg/dL 8.3-10.5 N = CA) Prot Total (test 6.6 g/dL 6.4-8.3 N code = TP) Albumin (test code 4.1 g/dL 3.5-5.2 N = ALB) A/G Ratio (test 1.6 Ratio code = AGRATIO) Globulin (test code 2.5 2.9-3.1 L = GLOB) Bili Total (test <0.1 mg/dL 0.1-0.9 L code = TBIL) Alk Phos (test code 62 U/L 35-104 N = APHOS) AST (test code = 16 U/L 1-32 N AST) ALT (test code = 21 U/L 1-33 N ALT) BUN/Creatinine 10.0 Ratio (test code = BCRATIO) Anion Gap (test 11 mmol/L 7-16 N code = AGAP) Estimated GFR (test >60 eGFR (es timated code = GFR) mL/min/1.73m2 Glomerular Joni tration Rate) is an est imated value,calculate d from the patient's s cristin creatinine usin g the MDRD equation.I t is NOT the patient 's actual GFR. The eGFR provides a more clinicallyusefu l measure of kidn ey disease than se rum creatinine alone.This calculation antonio es sex and race into account, if the informationis provided. If th e race is not provided , and the patient isAfrican-Ameri can, multiply by 1.2 12. If sex is not prov ided, and thepatient is female, multipl y by 0.742. Results for patients <18 ye ars ofage have not been validated by th e MDRD study and shoul d be interpretedwith caution.eGFR Re sult Interpretation: eGFR > or = 60 is in t he Normal RangeeGF R < 60 may mean kidney diseaseeGFR < 1 5 may mean kidney failureRange s recommended by the National Kidney Foundation,http ://nkd ep.nih.gov [id number] 22:49:00 Test Item Value Reference Range Interpretation Comments NT ProBnp (test code = PBNP) 97 pg/mL 0-124 N CBC with [id number] 22:41:00 Test Item Value Reference Range Interpretation Comments WBC (test code = WBC) 6.4 K/cumm 4.4-10.5 N RBC (test code = RBC) 4.10 M/cumm 3.75-5.20 N Hemoglobin (test code = HGB) 12.8 gm/dL 12.2-14.8 N Hematocrit (test code = HCT) 38.1 % 36.5-44.4 N MCV (test code = MCV) 93.0 fL 80-100 N MCH (test code = MCH) 31.3 pg 27.0-32.5 N MCHC (test code = MCHC) 33.7 g/dL 32.0-37.5 N RDW (test code = RDW) 13.1 % 11.5-14.5 N Platelet Count (test code = 355 K/cumm 140-440 N PLTCT) MPV (test code = MPV) 11.0 fL Diff Method (test code = DIFFM) Auto Neutrophil (test code = NEUT) 51.2 % 36-70 N Lymphocyte (test code = LYMPH) 35.9 % 12-44 N Monocyte (test code = MONO) 6.5 % 0-11 N Eosinophil (test code = EOS) 6.0 % 0-7 N Basophil (test code = BASO) 0.5 % 0-2 N Neutro Abs (test code = ANEUT) 3.3 K/cumm 1.6-7.4 N Lymph Abs (test code = ALYMPH) 2.3 K/cumm 0.5-4.6 N Hood Abs (test code = AMONO) 0.4 K/cumm 0.0-1.2 N Eos Abs (test code = AEOS) 0.38 K/cumm 0.00-0.74 N Baso Abs (test code = ABASO) 0.0 K/cumm 0.00-0.21 N
[2021-06-26 19:06] LABS: Absolute Lymphocytes (CBC) 0.7 K/uL (0.7-4.9); Lymphocytes % 10.4 % (15.3-44.8); MPV 8.2 fL (7.6-11.3)
[2021-06-26 19:07] LABS: Protime INR 0.98
[2021-06-26 19:15] LABS: Albumin 3.1 g/dL (3.4-5.0); BUN Blood Urea Nitrogen 9 mg/dL (7-18); Bicarbonate 26 mmol/L (21-32); Glucose Level 108 mg/dL (74-106); Magnesium 1.9 mg/dL (1.8-2.4); Potassium 3.3 mmol/L (3.5-5.1); Sodium Level 137 mmol/L (136-145)
--- NOTE | 2021-06-26 19:15 | RAD REPORT ---
EXAM DESCRIPTION: Jossue Single View06/26/2021 7:06 pm CLINICAL HISTORY: Chest pain COMPARISON: 2015 FINDINGS: The lungs appear clear of acute infiltrate. The heart is normal size IMPRESSION: No acute abnormalities displayed
[2021-06-26 19:24] LABS: ALT/SGPT 20 U/L (12-78); AST/SGOT 6 U/L (15-37); Alkaline Phosphatase 67 U/L (45-117); Bilirubin Total 0.3 mg/dL (0.2-1.0); NT PRO-BNP 165 pg/mL (<125); Protein, Total 6.3 g/dL (6.4-8.2)
[2021-06-26 19:25] LABS: Bilirubin Direct < 0.1 mg/dL (0-0.2)
[2021-06-26 19:43] LABS: SARS-COV-2 RT PCR NEGATIVE (NEGATIVE)
--- NOTE | 2021-06-26 20:47 | ER ---
Nurse's Notes [facility] Name: Yanet Draper Age: 46 yrs Sex: Female : 1975 Arrival Date: 06/26/2021 Time: 18:24 Bed 8 Private MD: Diagnosis: Influenza due to identified novel influenza A virus Presentation: 06/26 18:30 Chief complaint: EMS states: SOB, cough, fever, body aches and chills X 2 days. ld1 Coronavirus screen: Client presents with at least one sign or symptom that may indicate coronavirus-19. Standard/surgical mask placed on the client. Ebola Screen: No symptoms or risks identified at this time. Initial Sepsis Screen: Does the patient meet any 2 criteria? No. Patient's initial sepsis screen is negative. Does the patient have a suspected source of infection? No. Patient's initial sepsis screen is negative. Risk Assessment: Do you want to hurt yourself or someone else? Patient reports no desire to harm self or others. Onset of symptoms was June 26, 2021. 18:30 Method Of Arrival: EMS: [facility] [facility] ld1 18:30 Acuity: WALE 3 ld1 Triage Assessment: 18:33 General: Appears in no apparent distress. comfortable, Behavior is calm, cooperative, ld1 appropriate for age. Pain: Denies pain. EENT: No signs and/or symptoms were reported regarding the EENT system. Neuro: Level of Consciousness is awake, alert, obeys commands, Oriented to person, place, time, situation. Cardiovascular: Capillary refill < 3 seconds Patient's skin is warm and dry. Rhythm is sinus rhythm. Respiratory: Airway is patent Respiratory effort is even, unlabored, Respiratory pattern is regular, symmetrical. Respiratory: Reports shortness of breath at rest. GI: Abdomen is round non-distended. : No signs and/or symptoms were reported regarding the genitourinary system. Derm: Reports body aches and chills. Musculoskeletal: No signs and/or symptoms reported regarding the musculoskeletal system. 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 - Social history:: Smoking status: Patient denies any tobacco usage or history of. Patient/guardian denies using alcohol. Screenin:35 Abuse screen: Denies threats or abuse. Denies injuries from another. Nutritional ld1 screening: No deficits noted. Tuberculosis screening: No symptoms or risk factors identified. Fall Risk None identified. Assessment: 18:35 Reassessment: See triage assessment. ld1 Vital Signs: 18:30 BP 136 / 108; Pulse 99; Resp 23; Temp 99.1(O); Pulse Ox 94% on R/A; Weight 113.85 kg; ld1 Height 5 ft. 3 in. (160.02 cm); Pain 0/10; 18:30 BP 101 / 48; Pulse 83; Resp 20 S; Pulse Ox 96% ; ld1 19:38 BP 98 / 56; Pulse 83; Resp 23; Temp 98.7(O); Pulse Ox 97% on R/A; al4 20:07 BP 103 / 68; Pulse 85; Resp 14; Pulse Ox 97% on R/A; ld1 18:30 Body Mass Index 44.46 (113.85 kg, 160.02 cm) ld1 ED Course: 18:24 Patient arrived in ED. ke1 18:29 Luna Curtis, BLADIMIR is Primary Nurse. ld1 18:32 Triage completed. ld1 18:33 Arm band placed on right wrist. ld1 18:34 Tyler Ferrara PA is PHCP. cp 18:35 Janie Nolan MD is Attending Physician. cp 18:35 Patient has correct armband on for positive identification. Placed in gown. Bed in low ld1 position. Call light in reach. Side rails up X2. panel monitor on. Pulse ox on. NIBP on. Door closed. Noise minimized. 18:35 No provider procedures requiring assistance completed. ld1 18:50 Maintain EMS IV. Dressing intact. Good blood return noted. Site clean \\T\\ dry. Gauge \\T\\ ld 1 site: 20g dual access. 18:57 COVID-19/FLU A+B/RSV (Document "Date of Onset" if Symptomatic) Sent. ld1 19:06 XRAY Chest (1 view) In Process Unspecified. EDMS 21:22 IV discontinued, intact, bleeding controlled, No redness/swelling at site. Pressure ll3 dressing applied. Administered Medications: 21: Drug: Tamiflu (oseltamivir) 75 mg Route: PO; ll3 Outcome: 20:46 Discharge ordered by MD. cp 21:22 Discharged to home ambulatory, with family. ll3 21:22 Condition: stable 21:22 Discharge instructions given to patient, family, Instructed on discharge instructions, follow up and referral plans. medication usage, Demonstrated understanding of instructions, follow-up care, medications, Prescriptions given X 2. 21:23 Patient left the ED. ll3 Signatures: Dispatcher [employer] EDMS Tyler Ferrara PA PA cp Dibbern, Lauren, RN RN ld1 Karina Bonilla RN RN ll3 Jonnie Kumar Kouassi, RN RN ke1
--- NOTE | 2021-06-26 20:47 | EDPHYS ---
Physician Documentation [facility] Name: Yanet Draper Age: 46 yrs Sex: Female : 1975 Arrival Date: 06/26/2021 Time: 18:24 Bed 8 Private MD: ED Physician Janie Nolan HPI: 06/26 18:45 This 46 yrs old Female presents to ER via EMS with complaints of Cough. cp 18:45 The patient or guardian reports flu symptoms, low-grade fever, body aches. cp 18:45 Onset: The symptoms/episode began/occurred 2 day(s) ago. Associated signs and symptoms: cp Pertinent positives: chest pain, with cough, Pertinent negatives: diarrhea, sore throat, vomiting. 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 - Social history:: Smoking status: Patient denies any tobacco usage or history of. Patient/guardian denies using alcohol. ROS: 18:50 Eyes: Negative for injury, pain, redness, and discharge. cp 18:50 Constitutional: Positive for body aches, chills, Negative for fever. 18:50 ENT: Positive for sore throat, Negative for drainage from ear(s), ear pain, difficulty swallowing, difficulty handling secretions. 18:50 Cardiovascular: Positive for chest pain, with cough. 18:50 Respiratory: Positive for cough, with no reported sputum, shortness of breath, Negative for wheezing. 18:50 Abdomen/GI: Positive for nausea, Negative for abdominal pain, vomiting, diarrhea, constipation. 18:50 : Negative for urinary symptoms. 18:50 Neuro: Positive for headache, Negative for altered mental status, weakness. 18:50 All other systems are negative. Exam: 18:55 Constitutional: The patient appears in no acute distress, alert, awake, cp non-diaphoretic, non-toxic, well developed, well nourished, overweight 18:55 Head/Face: Normocephalic, atraumatic. cp 18:55 Eyes: Periorbital structures: appear normal, Pupils: equal, round, and reactive to light and accomodation, Extraocular movements: intact throughout, Conjunctiva: normal, no exudate, no injection, Sclera: no appreciated abnormality, Lids and lashes: appear normal, bilaterally. 18:55 ENT: External ear(s): are unremarkable, Ear canal(s): are normal, TM's: dullness, bilaterally, Nose: is normal, Mouth: Lips: moist, Oral mucosa: pink and intact, moist, Posterior pharynx: Airway: no evidence of obstruction, patent, Tonsils: no enlargement, no exudate, swelling, is not appreciated, erythema, that is mild, exudate, is not appreciated. 18:55 Neck: ROM/movement: is normal, is supple, without pain, no range of motions limitations, no meningismus, Lymph nodes: no appreciated lymphadenopathy. 18:55 Chest/axilla: Inspection: normal. 18:55 Cardiovascular: Rate: normal, Rhythm: regular, Edema: is not appreciated, JVD: is not appreciated. 18:55 Respiratory: the patient does not display signs of respiratory distress, Respirations: normal, no use of accessory muscles, no retractions, Breath sounds: decreased breath sounds, are not appreciated, stridor, is not appreciated, + upper airway congestion. wheezing: is not appreciated. 18:55 Abdomen/GI: Inspection: abdomen appears normal, Palpation: abdomen is soft and non-tender, in all quadrants. 18:55 Back: CVA tenderness, is absent. 18:55 Neuro: Orientation: to person, place \\T\\ time. Mentation: is normal, Motor: moves all fours, strength is normal, Sensation: is normal. Vital Signs: 18:30 BP 136 / 108; Pulse 99; Resp 23; Temp 99.1(O); Pulse Ox 94% on R/A; Weight 113.85 kg; ld1 Height 5 ft. 3 in. (160.02 cm); Pain 0/10; 18:30 BP 101 / 48; Pulse 83; Resp 20 S; Pulse Ox 96% ; ld1 19:38 BP 98 / 56; Pulse 83; Resp 23; Temp 98.7(O); Pulse Ox 97% on R/A; al4 20:07 BP 103 / 68; Pulse 85; Resp 14; Pulse Ox 97% on R/A; ld1 18:30 Body Mass Index 44.46 (113.85 kg, 160.02 cm) ld1 MDM: 18:47 Patient medically screened. cp 20:45 Data reviewed: vital signs, nurses notes, lab test result(s), EKG, radiologic studies, cp plain films. 20:45 Differential Diagnosis: Bronchitis Influenza Pneumonia Other CHF exacerbation. Test cp interpretation: by ED physician or midlevel provider: ECG, plain radiologic studies. Response to treatment: the patient's symptoms have markedly improved after treatment, and as a result, I will discharge patient. 06/26 18:40 Order name: Basic Metabolic Panel cp 06/26 18:40 Order name: CBC with Diff; Complete Time: 19:57 cp 06/26 19:57 Interpretation: Normal except: MCV 87.7; BRITNEY% 77.2; LYM% 10.4. cp 06/26 18:40 Order name: LFT's; Complete Time: 19:57 cp 06/26 18:40 Order name: Magnesium; Complete Time: 19:57 cp 06/26 18:40 Order name: NT PRO-BNP; Complete Time: 19:57 cp 06/26 19:57 Interpretation: NT PRO-BNP 165; Reviewed. cp 06/26 18:40 Order name: PT-INR; Complete Time: 19:57 cp 06/26 18:36 Order name: EKG - Nurse/Tech; Complete Time: 18:36 ld1 06/26 18:40 Order name: Troponin HS; Complete Time: 19:57 cp 06/26 18:40 Order name: XRAY Chest (1 view); Complete Time: 19:57 cp 06/26 18:40 Order name: EKG; Complete Time: 18:41 cp 06/26 18:40 Order name: Cardiac monitoring; Complete Time: 18:52 cp 06/26 18:40 Order name: COVID-19/FLU A+B/RSV (Document "Date of Onset" if Symptomatic); Complete cp Time: 19:57 06/26 19:57 Interpretation: Normal except: INFLUENZA A POSITIVE. cp 06/26 18:41 Order name: Basic Metabolic Panel; Complete Time: 19:57 EDMS 06/26 18:40 Order name: IV Saline Lock; Complete Time: 18:52 cp 06/26 18:40 Order name: Labs collected and sent; Complete Time: 18:57 cp 06/26 18:40 Order name: O2 Per Protocol; Complete Time: 18:52 cp 06/26 18:40 Order name: O2 Sat Monitoring; Complete Time: 18:52 cp 06/26 19:58 Order name: Misc. Order: ambulate patient w/o oxygen; Complete Time: 20:07 cp Administered Medications: 21:22 Drug: Tamiflu (oseltamivir) 75 mg Route: PO; ll3 Disposition Summary: 06/26/21 20:46 Discharge Ordered Location: Home cp Problem: new cp Symptoms: have improved cp Condition: Stable cp Diagnosis - Influenza due to identified novel influenza A virus cp Followup: cp - With: Private Physician - When: 2 - 3 days - Reason: Worsening of condition Discharge Instructions: - Discharge Summary Sheet cp - Influenza, Adult cp Forms: - Medication Reconciliation Form cp - Thank You Letter cp - Antibiotic Education cp - Prescription Opioid Use cp Prescriptions: - Bromfed DM 2-30-10 mg/5 mL Oral syrup - take 10 milliliter by ORAL route every 4 hours; 180 milliliter; Refills: 0, cp Product Selection Permitted - Tamiflu 75 mg Oral Capsule - take 1 tablet by ORAL route every 12 hours for 5 days; 10 tablet; Refills: 0, cp Product Selection Permitted Signatures: Dispatcher [employer] EDMS Tyler Ferrara PA PA cp Luna Curtis, RN RN ld1 Karina Bonilla RN RN ll3 Corrections: (The following items were deleted from the chart) 06/27 19:26 06/26 18:45 Associated signs and symptoms: Pertinent negatives: chest pain, diarrhea, cp sore throat, vomiting, cp
[2021-06-26] MEDS ORDERED: OSELTAMIVIR 75 MG CAP ONE (21:20)
[2021-06-26 21:36] VITALS: TEMP 98.7; O2SAT 97
[2021-06-26 21:37] VITALS: BP 103/68
--- NOTE | 2021-06-27 11:08 | EKG ---
Test Date: 2021-06-26 Test Time: 18:32:01 Station Chief: MAIDA MEASUREMENT RESULTS: Intervals: Rate: 90 CA: 146 QRSD: 72 QT: 344 QTc: 420 [place]: P: 19 CA: 146 QRS: 19 T: 30 INTERPRETIVE STATEMENTS: Normal sinus rhythm Normal ECG Compared to ECG 01/12/2016 13:24:54 Right-axis deviation no longer present T-wave abnormality no longer present Possible ischemia no longer present Electronically Signed On 06-27-21 11:07:11 [employer] by Mitch Ivory
== END 2021-06-26 21:23 | disposition home or self-care (01) ==
LOC: ER 18:24
DX: J10.1 Influenza due to other identified influenza virus with other respiratory manifestations (principal); Z20.822 Contact with and (suspected) exposure to COVID-19
CPT/HCPCS: 93005; 85025; 80048; 36415; 83735; 85610; 80076; 84484; 83880; 0241U; 71045; 99284